=== PATIENT | male | born 1985 | race Caucasian/White ===

== ENCOUNTER 2016-09-05 09:58 | Emergency (ER) | payer MEDICAID ==
[2016-09-05] MEDS ORDERED: ASPIRIN CHEW 81 MG TABLET PO STA (10:34)
[2016-09-05] MEDS ORDERED: ASPIRIN CHEW 81 MG TABLET ONE (10:43)
== END 2016-09-05 14:38 | disposition home or self-care (01) ==
DX: R07.9 Chest pain, unspecified (principal); K85.90 Acute pancreatitis without necrosis or infection, unspecified; I10 Essential (primary) hypertension; F17.200 Nicotine dependence, unspecified, uncomplicated
CPT/HCPCS: 36415; 71020; 80053; 83690; 84484; 85025; 93005; 93010; 99283; 99284; A9270